=== PATIENT | female | born 1950 | race Caucasian/White ===

== ENCOUNTER 2017-07-09 07:35 | Day surgery (SDC) | payer MEDICARE, OTHER ==
[2017-07-09] MEDS ORDERED: NALOXONE HCL INJ/PF 0.4 MG/1 ML SDV ONE (07:50)
[2017-07-09] MEDS ORDERED: GLYCOPYRROLATE INJ 0.4 MG/2 ML VIAL ONE (07:50)
[2017-07-09] MEDS ORDERED: ONDANSETRON HCL INJ/PF 4 MG/2 ML SDV ONE (07:50)
[2017-07-09] MEDS ORDERED: FLUMAZENIL INJ 0.5 MG/5 ML VIAL ONE (07:51)
[2017-07-09] MEDS ORDERED: EPINEPHRINE INJ 1 MG/10 ML DISP.SYRIN ONE (07:51)
[2017-07-09] MEDS ORDERED: GLUCAGON,HUMAN RECOMB 1 MG INJ ONE (07:51)
[2017-07-09] MEDS: MIDAZOLAM 2 MG/2 ML INJ ONE ×4 (08:14→08:35)
[2017-07-09] MEDS: FENTANYL CITRATE INJ/PF 100 MCG/2 ML AMPUL ONE ×3 (08:16→08:45)
--- NOTE | 2017-07-09 09:27 | Operative Report ---
Operative Report DATE OF SURGERY: 07/09/17 PREOPERATIVE DIAGNOSIS: 1. Heartburn. 2. Abdominal pain POSTOPERATIVE DIAGNOSIS: 1. Diffuse esophagitis. 2. Diffuse gastritis. 3. Duodenitis with superficial ulceration. 4. Hiatal hernia OPERATION: 1. Esophagogastroduodenoscopy. 2. Cold forceps biopsy of distal and third of the esophagus; cold forceps biopsy of gastric antrum; cold forceps biopsy of proximal duodenum. 3. Total colonoscopy to cecum SURGEON: MAULIK MOSQUERA ANESTHESIA: Moderate Sedation TISSUE REMOVED OR ALTERED: Biopsies COMPLICATIONS: None ESTIMATED BLOOD LOSS: Scant INTRAOPERATIVE FINDINGS: See below PROCEDURE: Patient was taken to the preop holding area to the main endoscopy suite for [facility] were conscious sedation was induced. She is placed in the left lateral decubitus position, semirecumbent and oral mouthpiece inserted and monitoring devices attached. Surgical plan surgical time out were conducted. The flexible adult upper endoscope was advanced to the hypopharynx down the esophagus through the stomach into the duodenum. This is well tolerated by the patient. There was no evidence of retained gastric contents. In the first portion of the duodenum there is mild to moderate duodenitis, with early ulceration. No biopsies were obtained. The scope was brought back to the pylorus which showed no evidence of narrowing. There was a moderate hiatal hernia. The stomach was significant for moderate gastritis. No ulcers polyps or tumors or active bleeding. 2 biopsies were obtained from the gastric antrum and sent as gastric antral biopsies. The scope was withdrawn through the GE junction. There was moderate irregularity of the Z line. Photos were taken. A cold forceps biopsy of Z line was obtained. Again there was a moderate size hiatal hernia. Photos taken. No evidence of tumor or stricture or esophageal varix. The distal third of the esophagus had a mild to moderate cobblestoning appearance. Biopsy was obtained the mucosa of the esophagus at 30 cm the scope was brought back through the remainder the esophagus which is unremarkable. The scope was withdrawn with the patient's oropharynx. She tolerated this portion procedure well Instrumentation was changed for lower endoscopy. Patient was placed in extreme left side down position. Rectal examination revealed external hemorrhoids, mildly edematous. Rectal examination revealed no palpable or visible pathology. Possible pediatric colonoscope was advanced to the anorectal canal all the way to it was felt to be the cecum. The patient had a very redundant colon. Once we got to the cecum photos were taken. There was no further moment to advance the scope and patient in the abdominal wall and the right lower quadrant confirmed localization of the scope in this portion of the colon. The scope was withdrawn to the lymph the colon check and mucosa carefully. There was no evidence of tumor stricture bleeding polyp or diverticulosis. This was a excellent study well-prepped bowel. The scope was withdrawn the patient's anus. She tolerated procedure well. Per screening guidelines, appropriate candidate for colonoscopy follow-up in 10 years or sooner if symptoms develop.
--- NOTE | 2017-07-09 09:28 | PDOC DISCHARGE SUMMARY ---
Discharge Summary (SDC) - Discharge Final Diagnosis: Esophagitis, duodenitis, gastritis; hiatal hernia; external hemorrhoids Date of Surgery: 07/09/17 Discharge Date: 07/09/17 Condition: Good Treatment or Instructions: [address] [address] POST ENDOSCOPY DISCHARGE INSTRUCTIONS 1. Diet: Start clear liquids that a regular diet as tolerated. 2. Resume all preoperative medications. All oral anticoagulants and aspirins can be resumed 24 hours after procedure. 3. If a polypectomy was performed some bleeding per rectum may occur. This should stop within 3 days. If not, please contact the office. 4. If you had a colonoscopy you may experience some bloating and delayed return of normal bowel function for several days, your regular bowel movement pattern should resume within a week. 5. Please contact [facility] at to make an appointment with Dr. Carmichael for 1 to 3 weeks following procedure. 6. If you have any questions or concerns regarding your care,treatment plan or follow up, please contact our office. 7. Per clinical guidelines we recommend you undergo a repeat colonoscopy in 10 years. Referrals: MAULIK CARMICHAEL MD [ACTIVE STAFF] - 07/21/17 1:00 pm Discharge Diet: As Tolerated Discharge Activity: Activity As Tolerated Home Care Assistance: None Needed Report the Following to Your Physician Immediately: Shortness of Breath, Increase in Pain, Fever over 101 Degrees
[2017-07-09 10:12] VITALS: BP 143/80
== END 2017-07-09 10:20 | disposition home or self-care (01) ==
LOC: END 07:35
PROVIDERS: ATTEND Surgery
PROC: 0DB38ZX Excision of Lower Esophagus, Via Natural or Artificial Opening Endoscopic, Diagnostic (ICD-10-PCS; 2017-07-09)
PROC: 0DB68ZX Excision of Stomach, Via Natural or Artificial Opening Endoscopic, Diagnostic (ICD-10-PCS; principal; 2017-07-09 08:15)
PROC: 0DB58ZX Excision of Esophagus, Via Natural or Artificial Opening Endoscopic, Diagnostic (ICD-10-PCS; 2017-07-09 08:15)
DX: K31.9 Disease of stomach and duodenum, unspecified (principal); K20.9 Esophagitis, unspecified; K29.80 Duodenitis without bleeding; K44.9 Diaphragmatic hernia without obstruction or gangrene; M19.90 Unspecified osteoarthritis, unspecified site; R10.9 Unspecified abdominal pain; K64.4 Residual hemorrhoidal skin tags; Z85.3 Personal history of malignant neoplasm of breast; Z85.828 Personal history of other malignant neoplasm of skin; Z87.891 Personal history of nicotine dependence; Z79.899 Other long term (current) drug therapy; Z79.1 Long term (current) use of non-steroidal anti-inflammatories (NSAID); Z88.8 Allergy status to other drugs, medicaments and biological substances
CPT/HCPCS: 43239; 45378; 88342 ×2; 88305 ×2; J2250; J3010; J0171; J1610; J2310; J2405; J3490

== ENCOUNTER 2018-04-18 12:36 | Observation (INO) | payer MEDICARE, BC ==
--- NOTE | 2018-04-18 13:02 | RADIOLOGY REPORT (SQ) ---
EXAM DESCRIPTION: CT HEAD WITHOUT COMPLETED DATE/TIME: 04/18/2018 12:48 pm REASON FOR STUDY: numbness and dizziness COMPARISON: None. TECHNIQUE: Axial images acquired through the brain without intravenous contrast. Images reviewed wi th bone, brain and subdural windows. Additional sagittal and coronal reconstructions were generated. Images stored on PACS. All CT scanners at this facility use dose modulation, iterative reconstruction, and/or weight based d osing when appropriate to reduce radiation dose to as low as reasonably achievable (ALARA). [facility]: Dose Right [facility]: CareDose [facility]: Dose Right [facility]: Teradose 4D [facility]: Smart [employer] RADIATION DOSE: CT Rad equipment meets quality standard of care and radiation dose reduction techniq ues were employed. CTDIvol: 53.2 mGy. DLP: 964 mGy-cm. mGy. LIMITATIONS: Artifact from right parasellar aneurysm clips. FINDINGS: VENTRICLES: Prominent. CEREBRUM: No masses. No hemorrhage. No midline shift. Areas of low density in the white matter mos t likely due to chronic micro-vascular ischemic change. No evidence for acute infarction. CEREBELLUM: No masses. No hemorrhage. No alteration of density. No evidence for acute infarction. EXTRAAXIAL SPACES: Mild age-related involutional change. No fluid collections. No masses. ORBITS AND GLOBE: No intra- or extraconal masses. Normal contour of globe without masses. CALVARIUM: No fracture. PARANASAL SINUSES: No fluid or mucosal thickening. SOFT TISSUES: No mass or hematoma. OTHER: No other significant finding. IMPRESSION: Prior right MCA aneurysm clips. No acute findings. EVIDENCE OF ACUTE STROKE: NO. COMMENT: Pertinent positive or negative findings of the imaging study reported as a CRITICAL EXAM venita Gusman at12:56 on 04/18/2018. Category of Critical Exam: Stroke alert TECHNICAL DOCUMENTATION: JOB ID: [id number] Quality ID # 436: Final reports with documentation of one or more dose reduction techniques (e.g., Au tomated exposure control, adjustment of the mA and/or kV according to patient size, use of iterative reconstruction technique) 2010 [employer]- All Rights Reserved Reading location - IP/workstation name: [email or web address]
--- NOTE | 2018-04-18 13:06 | RADIOLOGY REPORT (SQ) ---
EXAM DESCRIPTION: CHEST SINGLE VIEW COMPLETED DATE/TIME: 04/18/2018 12:50 pm REASON FOR STUDY: STROKE ALERT COMPARISON: 02/06/2016 EXAM PARAMETERS: NUMBER OF VIEWS: One view. TECHNIQUE: Single frontal radiographic view of the chest acquired. RADIATION DOSE: NA LIMITATIONS: None. FINDINGS: LUNGS AND PLEURA: Stable scarring in the right apex. No effusions. MEDIASTINUM AND HILAR STRUCTURES: No masses. Contour normal. HEART AND VASCULAR STRUCTURES: Heart normal in size. Normal vasculature. BONES: No acute findings. HARDWARE: None in the chest. OTHER: No other significant finding. IMPRESSION: NO ACUTE RADIOGRAPHIC FINDING IN THE CHEST. TECHNICAL DOCUMENTATION: JOB ID: [id number] 1936 [employer]- All Rights Reserved Reading location - IP/workstation name: [email or web address]
[2018-04-18] MEDS ORDERED: ASPIRIN 81 MG TABLET, CHEWABLE PO ONE (13:26)
--- NOTE | 2018-04-18 13:31 | ER Document Report ---
ED General - General Chief Complaint: Dizziness Stated Complaint: DIZZINESS/NUMB FACE Time Seen by Provider: 04/18/18 12:56 Mode of Arrival: Ambulatory Information source: Patient Notes: This is a 67-year-old female with a history of breast cancer, brain aneurysm, osteoporosis. She presents to the emergency room with right-sided weakness, slurred speech, right facial numbness. Patient's symptoms started while she was doing yard work at 1145. She states she fell to the ground because of the weakness. She denies any head injury. The neighbor was at the scene and brought the patient to the emergency room. TRAVEL OUTSIDE OF THE [place] IN LAST 30 DAYS: No - HPI Onset: Just prior to arrival Onset/Duration: Sudden Quality of pain: No pain Severity: None Pain Level: Denies Associated symptoms: denies: Chest pain, Fever, Shortness of breath Exacerbated by: Denies Relieved by: Denies Similar symptoms previously: No Recently seen / treated by doctor: No - Related Data Allergies/Adverse Reactions: diphenhydramine HCl [From Benadryl] Allergy (Severe, Verified 04/18/18 13:02) Shortness of Breath, throat swells Past Medical History - General Information source: Patient - Social History Smoking Status: Never Smoker Cigarette use (# per day): No Chew tobacco use (# tins/day): No Frequency of alcohol use: None Drug Abuse: None Lives with: Family Family History: Reviewed & Not Pertinent Patient has suicidal ideation: No Patient has homicidal ideation: No - Past Medical History Cardiac Medical History: Denies: Hx Coronary Artery Disease, Hx Heart Attack, Hx Hypertension Pulmonary Medical History: Reports: Hx Pneumonia - as a child Denies: Hx Asthma, Hx Bronchitis, Hx COPD Neurological Medical History: Denies: Hx Cerebrovascular Accident, Hx Seizures Renal/ Medical History: Denies: Hx Peritoneal Dialysis Musculoskeletal Medical History: Reports Hx Arthritis - GENERALIZED Past Surgical History: Reports: Hx Breast Surgery - b/l lumpectomy, Hx Cholecystectomy, Hx Hysterectomy - Immunizations Hx Diphtheria, Pertussis, Tetanus Vaccination: Yes Review of Systems - Review of Systems Constitutional: denies: Chills, Fever EENT: No symptoms reported Cardiovascular: No symptoms reported Respiratory: No symptoms reported Gastrointestinal: No symptoms reported Genitourinary: No symptoms reported Female Genitourinary: No symptoms reported Musculoskeletal: No symptoms reported Skin: No symptoms reported Hematologic/Lymphatic: No symptoms reported Neurological/Psychological: See HPI Physical Exam - Vital signs Vitals: Temp Pulse Resp BP Pulse Ox 97.9 F 73 18 162/92 H 98 04/18/18 12:50 04/18/18 12:50 04/18/18 12:50 04/18/18 12:50 04/18/18 12:50 Notes: Physical exam: GENERAL: 67-year-old female, alert and oriented 3, no acute distress. Blood pressure 162/97, pulse 74, O2 saturation 100%, respiratory rate 11 HEAD: Atraumatic, normocephalic. EYES: Pupils equal round and reactive to light, extraocular movements intact, sclera anicteric, conjunctiva are normal. ENT: TMs normal, nares patent, oropharynx clear without exudates. Moist mucous membranes. NECK: Normal range of motion, supple without obvious mass. LUNGS: Breath sounds clear to auscultation bilaterally and equal. No wheezes rales or rhonchi. HEART: Regular rate and rhythm without murmurs, rubs or gallops. ABDOMEN: Soft, normoactive bowel sounds. No tenderness to palpation. No guarding, no rebound. No masses appreciated. EXTREMITIES: Normal range of motion, no pitting or edema. No clubbing or cyanosis. NEUROLOGICAL: Patient is alert and oriented 3, she is alert and keenly responsive, she knows the month and her age, she can perform commands without problems, she has a normal gaze, her visual ahn are intact, she does have mild sensory disturbance to the right side of the face, no facial palsy, no motor drift of upper or lower extremities, finger to nose is intact, her picture description, object naming and sentence reading is good, she has no dysarthria or extinction. NIH score is 1. PSYCH: Normal mood, normal affect. SKIN: Warm, Dry, normal turgor, no rashes or lesions noted. Course - Re-evaluation Re-evalutation: 04/18/18 13:30 Patient presents to the emergency room with symptoms concerning for stroke. She is excluded from thrombolytics because of rapidly improving symptoms. - Vital Signs Vital signs: Temp Pulse Resp BP Pulse Ox 97.9 F 76 15 143/78 H 100 04/18/18 12:50 04/18/18 18:42 04/18/18 17:31 04/18/18 17:31 04/18/18 17:31 - Laboratory Result Diagrams: 04/18/18 12:53 04/18/18 12:53 Laboratory results interpreted by me: 04/18/18 04/18/18 12:53 14:05 Chloride 108 H AST 38 H Urine Blood SMALL H Ur Leukocyte Esterase TRACE H - Diagnostic Test Radiology reviewed: Image reviewed, Reports reviewed - Chest x-ray is clear. CT of the head shows no bleed, prior aneurysm clips. - EKG Interpretation by Me Rate: Normal Rhythm: NSR - EKG shows normal sinus rhythm with a ventricular rate of 70, no acute ST-T wave changes Critical Care Note - Critical Care Note Total time excluding time spent on procedures (mins): 60 Discharge - Discharge Clinical Impression: CVA Condition: Stable Disposition: ADMITTED INPATIENT Admitting Provider: Cayla Bermeo Unit Admitted: [facility]
[2018-04-18 14:22] LABS: ABSOLUTE EOSINOPHILS # (AUTO) 0.2 10^3/uL (0.0-0.6); ABSOLUTE LYMPHOCYTES (AUTO) 1.9 10^3/uL (0.5-4.7); ABSOLUTE MONOCYTES (AUTO) 0.7 10^3/uL (0.1-1.4); ABSOLUTE NEUT (AUTO) 2.7 10^3/uL (1.7-8.2); BASOPHILS % (AUTO) 0.5 % (0-2); EOSINOPHILS % (AUTO) 3.6 % (0-6); HEMATOCRIT 38.8 % (36.0-47.0); HEMOGLOBIN 13.2 g/dL (12.0-15.5); LYMPHOCYTES % (AUTO) 34.8 % (13-45); MEAN CORPUSCULAR HEMOGLOBIN 32.4 pg (27.0-33.4); MEAN CORPUSCULAR HGB CONC 33.9 g/dL (32.0-36.0); MEAN CORPUSCULAR VOLUME 96 fl (80-97); MONOCYTES % (AUTO) 12.2 % (3-13); PLATELET COUNT 174 10^3/uL (150-450); RED BLOOD COUNT 4.06 10^6/uL (3.72-5.28); RED CELL DISTRIBUTION WIDTH 13.6 % (11.5-14.0); SEGMENTED NEUTROPHILS % (AUTO) 48.9 % (42-78); TOTAL CELLS COUNTED % (AUTO) 100 %; WHITE BLOOD COUNT 5.5 10^3/uL (4.0-10.5)
[2018-04-18 14:42] LABS: ALANINE AMINOTRANSFERASE 30 U/L (9-52); ALBUMIN 3.8 g/dL (3.5-5.0); ALKALINE PHOSPHATASE 88 U/L (38-126); ANION GAP 7 (5-19); ASPARTATE AMINO TRANSFERASE 38 U/L (14-36); BILIRUBIN,DIRECT 0.3 mg/dL (0.0-0.4); BILIRUBIN,TOTAL 0.4 mg/dL (0.2-1.3); BLOOD UREA NITROGEN 16 mg/dL (7-20); CALCIUM 9.5 mg/dL (8.4-10.2); CARBON DIOXIDE 29 mmol/L (22-30); CHLORIDE 108 mmol/L (98-107); CREATINE KINASE 67 U/L (30-135); GLUCOSE 103 mg/dL (75-110); POTASSIUM 3.6 mmol/L (3.6-5.0); SODIUM 143.5 mmol/L (137-145); TOTAL PROTEIN 6.6 g/dL (6.3-8.2)
[2018-04-18 14:56] LABS: CREATINE KINASE MB 0.79 ng/mL (<4.55)
[2018-04-18 14:56] LABS: APPEARANCE,URINE CLEAR; BILIRUBIN,URINE NEGATIVE (NEGATIVE); COLOR,URINE COLORLESS; GLUCOSE, URINE NEGATIVE (NEGATIVE); KETONES,URINE NEGATIVE (NEGATIVE); LEUKOCYTE ESTERASE,URINE TRACE (NEGATIVE); NITRITE,URINE NEGATIVE (NEGATIVE); PROTEIN,URINE NEGATIVE (NEGATIVE); URINE SPECIFIC GRAVITY 1.003; UROBILINOGEN,URINE NEGATIVE mg/dL (<2.0)
[2018-04-18 14:58] LABS: TROPONIN I < 0.012 ng/mL
--- NOTE | 2018-04-18 16:06 | RADIOLOGY REPORT (SQ) ---
EXAM DESCRIPTION: CTA HEAD COMPLETED DATE/TIME: 04/18/2018 3:44 pm REASON FOR STUDY: CVA COMPARISON: None. TECHNIQUE: Post IV contrast scanning, thin section axial imaging through the brain to evaluate the a rterial structures. Source and MIP images are saved and reviewed on PACS. Advanced 3D imaging as volume-rendering, MIPs, SSD performed? yes All CT scanners at this facility use dose modulation, iterative reconstruction, and/or weight based d osing when appropriate to reduce radiation dose to as low as reasonably achievable (ALARA). [facility]: Dose Right [facility]: CareDose [facility]: Dose Right [facility]: Teradose 4D [facility]: [employer]app CONTRAST TYPE AND DOSE: contrast/concentration: Isovue 350.00 mg/ml; Total Contrast Delivered: 70.0 ml; Total Saline Delivered: 62.0 ml RENAL FUNCTION: GFR > 60. LIMITATIONS: Artifact from aneurysm clips. FINDINGS: [place]: Aneurysm clips near the right M 1 segment. The anterior, middle, commercial stripper ior cerebral arteries are all patent. No evidence of aneurysm or focal stenosis. POSTERIOR CIRCULATION: The distal vertebral arteries are patent as is the basilar artery. No aneurysm . BRAIN: No enhancing lesions. BONES: Intact as visualized. SINUSES: No fluid or mucosal thickening. OTHER: No other significant finding. IMPRESSION: NO CTA EVIDENCE OF STENOSIS OR ANEURYSM OF THE [place]. TECHNICAL DOCUMENTATION: JOB ID: [id number] Quality ID # 436: Final reports with documentation of one or more dose reduction techniques (e.g., Au tomated exposure control, adjustment of the mA and/or kV according to patient size, use of iterative reconstruction technique) 2010 [employer]- All Rights Reserved Reading location - IP/workstation name: [email or web address]
--- NOTE | 2018-04-18 16:07 | RADIOLOGY REPORT (SQ) ---
EXAM DESCRIPTION: CTA NECK COMPLETED DATE/TIME: 04/18/2018 3:44 pm REASON FOR STUDY: CVA COMPARISON: None. TECHNIQUE: Axial dynamic scanning technique with dynamic contrast enhancement through the extra-sole scraper nial carotid and vertebral arteries. Multiplanar reconstruction. 3-D MIPS and Volume-rendered imag es acquired at the workstation and saved to PACS. Images are reviewed in soft tissue, bone, lung w indows. All CT scanners at this facility use dose modulation, iterative reconstruction, and/or weight based d osing when appropriate to reduce radiation dose to as low as reasonably achievable (ALARA). [facility]: Dose Right [facility]: CareDose [facility]: Dose Right [facility]: Teradose 4D [facility]: [email or web address] CONTRAST TYPE AND DOSE: See separate report of the same date RENAL FUNCTION: See separate report of the same date LIMITATIONS: None. FINDINGS: AORTIC ARCH: Normal three-vessel origin. Bilateral subclavian arteries are patent. No d issection. RIGHT CAROTIDS: Patent common, internal and external carotid arteries without suggestion of significa nt stenosis or irregular plaque. No dissection. RIGHT VERTEBRAL: Patent. No dissection. LEFT CAROTIDS: Patent common, internal and external carotid arteries without suggestion of significan t stenosis or irregular plaque. No dissection. LEFT VERTEBRAL: Patent. No dissection. OTHER: No other significant finding. OTHER: 3-D reconstructions confirm findings. IMPRESSION: NORMAL CTA OF THE EXTRA-CRANIAL CAROTID AND VERTEBRAL ARTERIES. COMMENT: Quality ID #[id number]: Measurements of distal internal carotid diameter were used as the denomina tor for stenosis measurement. TECHNICAL DOCUMENTATION: JOB ID: [id number] Quality ID # 436: Final reports with documentation of one or more dose reduction techniques (e.g., Au tomated exposure control, adjustment of the mA and/or kV according to patient size, use of iterative reconstruction technique) 2010 [employer]- All Rights Reserved Reading location - IP/workstation name: [email or web address]
[2018-04-18] MEDS ORDERED: ACETAMINOPHEN 325 MG TABLET PO PRN (16:17)
[2018-04-18] MEDS ORDERED: ONDANSETRON HCL INJ/PF 4 MG/2 ML SDV IV PRN (16:17)
--- NOTE | 2018-04-18 16:22 | EKG REPORT ---
SEVERITY:- NORMAL ECG - SINUS RHYTHM : Confirmed by: Farooq Evans MD 18-Apr-2018 16:22:03
[2018-04-18] MEDS ORDERED: METOPROLOL TARTRATE PF/INJ 5 MG/5 ML SDV IV PRN (16:23)
[2018-04-18] MEDS ORDERED: HYDRALAZINE HCL INJ/PF 20 MG/1 ML SDV IV PRN (16:23)
--- NOTE | 2018-04-18 16:44 | PDOC H&P ---
History of Present Illness Admission Date/PCP: 04/18/18 16:15 Patient complains of: R SIDED WEAKNESS History of Present Illness: ALEC GAY is a 67 year old female who presents to [facility] for right-sided weakness. The patient reports that at approximately 1130 she was outside in her garden today when she experienced an acute onset of right facial weakness, dysarthria, RUE weakness and paresthesia, and ataxia. A friend came to her aid and offered her water, initially thinking that the patient was suffering a near syncopal episode due to dehydration. Another friend arrived approximately 30 minutes later and was concerned that the patient may be having a stroke so she brought her to [facility] ED. Upon arrival to the ED, most of the patient's symptoms had resolved, her primary complaint was RUE weakness. VS were relatively stable , BP 162/92 HR 73 T 97.9 RR 18 SPO2 98% on RA. EKG showed NSR, no evidence of acute infarction or ischemia. Initial head CT was benign, only showing chronic microvascular changes. CXR was normal. Laboratory studies including CBC, CMP and cardiac enzymes were all completely normal. Upon assessment, the patient is resting comfortably in bed on room air. She is alert and oriented 4, she is able to answer all questions appropriately and recall the events of earlier this morning. Of note, the patient does have some difficulty with word finding but this is very mild and sporadic throughout the conversation. Her speech is clear. No evidence of facial droop. Equal strength in all 4 extremities. The patient denies paresthesia, visual changes, headache or neck pain. The patient has no difficulty with hand/eye coordination. Lungs are clear to auscultation. Normal S1-S2. Palpable pulses in all 4 extremities. No evidence of peripheral edema. Based on the patient's symptomology, plan to admit to hospitalist service for a TIA workup. Past Medical History Cardiac Medical History: Denies: Coronary Artery Disease, Myocardial Infarction, Hypertension Pulmonary Medical History: Reports: Pneumonia - as a child Denies: Asthma, Bronchitis, Chronic Obstructive Pulmonary Disease (COPD) Neurological Medical History: Denies: Seizures Malignancy Medical History: Reports: Breast Cancer - RADIATION & SURGERY Musculoskeltal Medical History: Reports: Arthritis - GENERALIZED Hematology: Denies: Anemia Past Surgical History Past Surgical History: Reports: Cholecystectomy, Hysterectomy, Other - ANEURYSM CLIPPING ([facility]) Social History Information Source: Patient Lives with: Alone Smoking Status: Never Smoker Frequency of Alcohol Use: None Hx Recreational Drug Use: No Drugs: None Hx Prescription Drug Abuse: No - Advance Directive Resuscitation Status: Full Code Family History Family History: Malignancy - lung - father Parental Family History Reviewed: Yes Children Family History Reviewed: NA Sibling(s) Family History Reviewed.: Yes Medication/Allergy Home Medications: Exemestane [Aromasin] 25 mg PO DAILY 06/29/17 Allergies/Adverse Reactions: diphenhydramine HCl [From Benadryl] Allergy (Severe, Verified 04/18/18 13:02) Shortness of Breath, throat swells Review of Systems All systems: reviewed and no additional remarkable complaints except as stated Physical Exam Vital Signs: Temp Pulse Resp BP Pulse Ox 97.9 F 78 11 L 148/91 H 98 04/18/18 12:50 04/18/18 15:00 04/18/18 15:10 04/18/18 15:10 04/18/18 15:10 General appearance: PRESENT: no acute distress Eye exam: PRESENT: conjunctiva pink, PERRLA Mouth exam: PRESENT: moist, tongue midline Neck exam: PRESENT: full ROM Respiratory exam: PRESENT: clear to auscultation catrachita, symmetrical, unlabored Cardiovascular exam: PRESENT: +S1, +S2 Pulses: PRESENT: normal radial pulses, normal dorsalis pedis pul Vascular exam: PRESENT: normal capillary refill GI/Abdominal exam: PRESENT: normal bowel sounds, soft. ABSENT: distended, tenderness Rectal exam: PRESENT: deferred Extremities exam: PRESENT: full ROM. ABSENT: pedal edema Musculoskeletal exam: PRESENT: ambulatory, full ROM Neurological exam: PRESENT: alert, awake, oriented to person, oriented to place , oriented to time, oriented to situation Psychiatric exam: PRESENT: appropriate affect Skin exam: PRESENT: dry, intact, normal color, warm Results Impressions: Chest X-Ray 04/18/18 00:00 IMPRESSION: NO ACUTE RADIOGRAPHIC FINDING IN THE CHEST. Head CT 04/18/18 00:00 IMPRESSION: Prior right MCA aneurysm clips. No acute findings. EVIDENCE OF ACUTE STROKE: NO. Head CTA 04/18/18 14:44 IMPRESSION: NO CTA EVIDENCE OF STENOSIS OR ANEURYSM OF THE [place]. Neck CTA 04/18/18 14:44 IMPRESSION: NORMAL CTA OF THE EXTRA-CRANIAL CAROTID AND VERTEBRAL ARTERIES. Status: Imported from PACS Assessment & Plan - Diagnosis (1) TIA (transient ischemic attack) Is this a current diagnosis for this admission?: Yes Plan: R sided weakness and paresthesia that has now resolved Head CT benign Unable to perform MRI due to history of aneurysm clipping CTA head normal CTA neck normal EKG shows NSR, no evidence of acute ischemia or infarct Admit to IMCU Carotid Doppler pending Echocardiogram pending Aspirin and statin therapy PRN antihypertensives to maintain SBP<170 Formal speech and swallow eval pending MENDS exam q4h NIH stroke scale q shift Lipid panel in AM - Time Time Spent: 30 to 50 Minutes Medications reviewed and adjusted accordingly: Yes Anticipated discharge: Home Within: within 36 hours - Inpatient Certification Based on my medical assessment, after consideration of the patient's comorbidities, presenting symptoms, or acuity I expect that the services needed warrant INPATIENT care.: Yes I certify that my determination is in accordance with my understanding of Medicare's requirements for reasonable and necessary INPATIENT services [42 CFR 412.3e].: Yes Medical Necessity: Risk of Complication if Not Cared For in Hospital - Plan Summary Plan Summary: COMPLETE TIA WORKUP
[2018-04-18] MEDS ORDERED: ATORVASTATIN CALCIUM 20 MG TABLET PO SCH (22:00)
[2018-04-19] MEDS ORDERED: LANSOPRAZOLE 30 MG TAB.RAP.DR PO SCH (06:00)
[2018-04-19 06:17] LABS: HEMATOCRIT 40.1 % (36.0-47.0); HEMOGLOBIN 13.6 g/dL (12.0-15.5); MEAN CORPUSCULAR HEMOGLOBIN 32.5 pg (27.0-33.4); MEAN CORPUSCULAR HGB CONC 33.9 g/dL (32.0-36.0); MEAN CORPUSCULAR VOLUME 96 fl (80-97); PLATELET COUNT 153 10^3/uL (150-450); RED BLOOD COUNT 4.19 10^6/uL (3.72-5.28); RED CELL DISTRIBUTION WIDTH 13.6 % (11.5-14.0); WHITE BLOOD COUNT 4.5 10^3/uL (4.0-10.5)
[2018-04-19 06:36] LABS: ALANINE AMINOTRANSFERASE 37 U/L (9-52); ALBUMIN 3.8 g/dL (3.5-5.0); ALKALINE PHOSPHATASE 60 U/L (38-126); ANION GAP 8 (5-19); ASPARTATE AMINO TRANSFERASE 38 U/L (14-36); BILIRUBIN,DIRECT 0.3 mg/dL (0.0-0.4); BILIRUBIN,TOTAL 0.9 mg/dL (0.2-1.3); BLOOD UREA NITROGEN 12 mg/dL (7-20); CALCIUM 9.5 mg/dL (8.4-10.2); CARBON DIOXIDE 24 mmol/L (22-30); CHLORIDE 111 mmol/L (98-107); CHOLESTEROL 213.76 mg/dL (0-200); GLUCOSE 95 mg/dL (75-110); POTASSIUM 4.2 mmol/L (3.6-5.0); TOTAL PROTEIN 6.5 g/dL (6.3-8.2); TRIGLYCERIDES 161 mg/dL (<150)
[2018-04-19 06:47] LABS: DIRECT LDL 131 mg/dL (<100)
[2018-04-19 06:50] LABS: VLDL CHOLESTEROL 32.2 mg/dL (10-31)
[2018-04-19] MEDS ORDERED: ASPIRIN 81 MG TABLET, ENT COATED PO SCH (10:00)
[2018-04-19] MEDS ORDERED: ENOXAPARIN SODIUM INJ 30 MG/0.3 ML DISP.SYRIN SUBCUT SCH (10:00)
[2018-04-19 15:27] VITALS: BP 162/92
[2018-04-19] MEDS ORDERED: ATORVASTATIN CALCIUM 40 MG TABLET PO SCH (22:00)
--- NOTE | 2018-04-20 13:44 | XCELERA REPORT ---
[address] [address] Transthoracic Echocardiogram Report Name: ALEC GAY Age: 67 yrs Gender: Female : 1950 Patient Status: Inpatient Patient Location: [address] [place] [address] Study Date: 04/19/2018 11:37 AM Height: 68 in Weight: 114 lb BSA: 1.6 m2 Procedure: A complete two-dimensional transthoracic echocardiogram was performed (2D, M-mode, spectral and color flow Doppler). The study was technically adequate with some images being suboptimal in quality. Reason For Study: TIA Ordering Physician: PAYTON TRUJILLO Performed By: Claudia Camarillo Interpretation Summary The left ventricular ejection fraction is normal. There is mild concentric left ventricular hypertrophy. The left ventricle is grossly normal size. Doppler measurements suggest pseudonormalized left ventricular relaxation, which is associated with grade II/IV or mild to moderate diastolic dysfunction Wall motion cannot be accurately commented on, but no definite regional wall motion abnormalities noted. The right ventricle is grossly normal size. The right ventricular systolic function is normal. The left atrial size is normal. The right atrium is normal. There is a trace amount of mitral regurgitation There is no mitral valve stenosis. There is no aortic valve stenosis No aortic regurgitation is present. There is a trace or physiologic amount of tricuspid regurgitation Tricuspid regurgitation jet envelope not well defined to measure RV systolic pressure accurately. The aortic root is not well visualized but is probably normal size. The inferior vena cava appeared normal and decreased > 50% with respiration (RAP 5-10 mmHg) There is no pericardial effusion. MMode/2D Measurements & Calculations RVDd: 2.7 cm LVIDd: 3.6 cm FS: 32.6 % Ao root diam: 2.6 cm IVSd: 1.0 cm LVIDs: 2.4 cm EDV(Teich): 55.0 ml Ao root area: 5.3 cm2 LVPWd: 0.98 cm ESV(Teich): 20.9 ml LA dimension: 2.4 cm EF(Teich): 61.9 % Doppler Measurements & Calculations MV E max aurora: MV P1/2t max aurora: Ao V2 max: LV V1 max P.9 cm/sec 48.4 cm/sec 114.0 cm/sec 3.7 mmHg MV A max aurora: MV P1/2t: 93.8 msec Ao max PG: LV V1 max: 81.4 cm/sec MVA(P1/2t): 2.3 cm2 5.2 mmHg 96.7 cm/sec MV E/A: 0.59 MV dec slope: 151.1 cm/sec2 MV dec time: 0.32 sec PA V2 max: MV P1/2t-pr_phl: 80.9 cm/sec 93.8 msec PA max P.6 mmHg Left Ventricle The left ventricle is grossly normal size. There is mild concentric left ventricular hypertrophy. The left ventricular ejection fraction is normal. Doppler measurements suggest pseudonormalized left ventricular relaxation, which is associated with grade II/IV or mild to moderate diastolic dysfunction. Wall motion cannot be accurately commented on, but no definite regional wall motion abnormalities noted. Right Ventricle The right ventricle is grossly normal size. There is normal right ventricular wall thickness. The right ventricular systolic function is normal. Atria The right atrium is normal. The left atrial size is normal. The interatrial septum is intact with no evidence for an atrial septal defect. Mitral Valve The mitral valve is grossly normal. There is no mitral valve stenosis. There is a trace amount of mitral regurgitation. Aortic Valve The aortic valve is not well visualized secondary to technical limitations. The aortic valve opens well. There is no aortic valve stenosis. No aortic regurgitation is present. Tricuspid Valve The tricuspid valve is not well visualized, but is grossly normal. There is no tricuspid stenosis. There is a trace or physiologic amount of tricuspid regurgitation. Tricuspid regurgitation jet envelope not well defined to measure RV systolic pressure accurately. Pulmonic Valve The pulmonic valve is not well visualized. Great Vessels The aortic root is not well visualized but is probably normal size. The inferior vena cava appeared normal and decreased > 50% with respiration (RAP 5-10 mmHg). Effusions There is no pericardial effusion. Incidental Findings No definite cardiac source of CVA/TIA noted on this particular trans-thoracic study. Consider RABIA if clinically indicated. May consider mobile cardiac telemetry monitoring (MCT) for ruling out transient AFIB. : PAYTON TRUJILLO > Jesus Chandler
== END 2018-04-19 15:30 | disposition home or self-care (01) ==
LOC: ER 12:36 → INTOOBSV 16:15 → EH 16:15 → 3S 18:38
PROVIDERS: ADMIT Internal Medicine; ATTEND Internal Medicine
DX: G45.9 Transient cerebral ischemic attack, unspecified (principal); M81.0 Age-related osteoporosis without current pathological fracture; R29.701 NIHSS score 1; R47.1 Dysarthria and anarthria; I67.1 Cerebral aneurysm, nonruptured; M19.90 Unspecified osteoarthritis, unspecified site; Z85.3 Personal history of malignant neoplasm of breast; Z92.3 Personal history of irradiation; Z79.899 Other long term (current) drug therapy; Z90.49 Acquired absence of other specified parts of digestive tract; Z60.2 Problems related to living alone; Z98.890 Other specified postprocedural states; Z95.828 Presence of other vascular implants and grafts
CPT/HCPCS: 93005; 99291; 36415 ×2; 82553; 82962; 82550; 85025; 85027; 80053 ×2; 81001; 84484 ×2; 83036; 80061; 93306; 71045; 70450; 70496; 70498; 93010; 92523; A9270 ×3; J1650; G9162; G9163; G9164

== ENCOUNTER 2019-01-18 08:07 | Emergency (ER) | payer MEDICARE, OTHER ==
[2019-01-18 08:23] VITALS: BP 136/65
--- NOTE | 2019-01-18 09:38 | ER Document Report ---
ED General - General Chief Complaint: Blurred Vision Stated Complaint: EYE PAIN Time Seen by Provider: 01/18/19 09:01 Primary Care Provider: JAQUELINE ARITA MD [ACTIVE STAFF] - 01/18/19 9:37 am Mode of Arrival: Ambulatory Information source: Patient Notes: Patient presents emergency department with complaints of blurred vision in her right eye past 3 days. Patient reports she is noticed floaters and flashes of light. 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 She denies trauma. She reports every now and then she will see light nevarez discharge coming from the right eye. Reports she is had a headache on the right side of her head that comes and goes for the past 3 months. TRAVEL OUTSIDE OF THE [place] IN LAST 30 DAYS: No - HPI Onset: Other Onset/Duration: Persistent Quality of pain: No pain Associated symptoms: None Exacerbated by: Denies Relieved by: Denies Similar symptoms previously: Yes Recently seen / treated by doctor: No - Related Data Allergies/Adverse Reactions: diphenhydramine HCl [From Benadryl] Allergy (Severe, Verified 01/18/19 08:16) Shortness of Breath, throat swells Past Medical History - General Information source: Patient - Social History Smoking Status: Never Smoker Chew tobacco use (# tins/day): No Drug Abuse: None Family History: Reviewed & Not Pertinent Patient has suicidal ideation: No Patient has homicidal ideation: No - Past Medical History Cardiac Medical History: Denies: Hx Coronary Artery Disease, Hx Heart Attack, Hx Hypertension Pulmonary Medical History: Reports: Hx Pneumonia - as a child Denies: Hx Asthma, Hx Bronchitis, Hx COPD Neurological Medical History: Denies: Hx Cerebrovascular Accident, Hx Seizures Renal/ Medical History: Denies: Hx Peritoneal Dialysis Malignancy Medical History: Reports: Hx Breast Cancer - RADIATION & SURGERY Musculoskeletal Medical History: Reports Hx Arthritis - GENERALIZED Psychiatric Medical History: Reports: Other - Early onset dementia Past Surgical History: Reports: Hx Breast Surgery - b/l lumpectomy, Hx Cholecystectomy, Hx Hysterectomy, Other - ANEURYSM CLIPPING ([facility]) - Immunizations Hx Diphtheria, Pertussis, Tetanus Vaccination: Yes Review of Systems - Review of Systems Notes: Review HPI for review of systems., All other systems negative Physical Exam - Vital signs Vitals: Temp Pulse Resp BP Pulse Ox 97.8 F 60 16 136/65 H 100 01/18/19 08:21 01/18/19 08:21 01/18/19 08:21 01/18/19 08:21 01/18/19 08:21 - General General appearance: Appears well, Alert In distress: None - HEENT Head: Normocephalic Eyes: Normal Conjunctiva: Normal Eyelashes: Normal Pupils: PERRL Visual acuity- Right eye: 20/25 Visual acuity- Left eye: 20/20 Visual acuity- Both eyes: 20/20 Corrective lenses worn: No Pharynx: Normal Neck: Normal, Supple - Respiratory Respiratory status: No respiratory distress Chest status: Nontender Breath sounds: Normal Chest palpation: Normal - Cardiovascular Rhythm: Regular Heart sounds: Normal auscultation - Extremities General upper extremity: Normal ROM General lower extremity: Normal ROM - Neurological Neuro grossly intact: Yes Cognition: Normal Orientation: AAOx4 [place] Coma Scale Eye Opening: Spontaneous Lee Coma Scale Verbal: Oriented Lee Coma Scale Motor: Obeys Commands [place] Coma Scale Total: 15 Speech: Normal Sensory: Normal - Psychological Associated symptoms: Normal affect, Normal mood - Skin Skin Temperature: Warm Skin Moisture: Dry Skin Color: Normal Course - Re-evaluation Re-evalutation: 01/18/19 09:46 Patient vision in the right eye is 20/25. No erythema no swelling to the right eye. Patient is experienced floaters with flashes. No current headache. Dr. Arita was consulted. Discussed patient's case. He reports patient can be followed up in his office now. She will be taken on a walk-in basis. Patient was instructed. Patient was very appreciative and happy. Dictation of this chart was performed using voice recognition software; therefore, there may be some unintended grammatical errors. - Vital Signs Vital signs: Temp Pulse Resp BP Pulse Ox 97.8 F 60 16 136/65 H 100 01/18/19 08:21 01/18/19 08:21 01/18/19 08:21 01/18/19 08:21 01/18/19 08:21 Discharge - Discharge Clinical Impression: Blurred vision, right eye Condition: Stable Disposition: HOME, SELF-CARE Additional Instructions: *You have been evaluated for blurred vision *Follow up with Dr Arita now *Return to ED for worsening condition, concerns, needs Referrals: JAQUELINE ARITA MD [ACTIVE STAFF] - 01/18/19 9:37 am
== END 2019-01-18 09:43 | disposition home or self-care (01) ==
LOC: ER 08:07
DX: H53.8 Other visual disturbances (principal); Z90.49 Acquired absence of other specified parts of digestive tract; Z90.710 Acquired absence of both cervix and uterus
CPT/HCPCS: 99283

== ENCOUNTER 2019-05-10 18:06 | Emergency (ER) | payer MEDICARE, OTHER ==
[2019-05-10 18:37] LABS: ABSOLUTE EOSINOPHILS # (AUTO) 0.1 10^3/uL (0.0-0.6); ABSOLUTE LYMPHOCYTES (AUTO) 2.1 10^3/uL (0.5-4.7); ABSOLUTE MONOCYTES (AUTO) 0.6 10^3/uL (0.1-1.4); ABSOLUTE NEUT (AUTO) 3.4 10^3/uL (1.7-8.2); BASOPHILS % (AUTO) 0.6 % (0-2); EOSINOPHILS % (AUTO) 2.4 % (0-6); HEMATOCRIT 41.5 % (36.0-47.0); HEMOGLOBIN 13.9 g/dL (12.0-15.5); LYMPHOCYTES % (AUTO) 33.1 % (13-45); MEAN CORPUSCULAR HEMOGLOBIN 31.7 pg (27.0-33.4); MEAN CORPUSCULAR HGB CONC 33.4 g/dL (32.0-36.0); MEAN CORPUSCULAR VOLUME 95 fl (80-97); MONOCYTES % (AUTO) 9.6 % (3-13); PLATELET COUNT 174 10^3/uL (150-450); RED BLOOD COUNT 4.38 10^6/uL (3.72-5.28); RED CELL DISTRIBUTION WIDTH 13.5 % (11.5-14.0); SEGMENTED NEUTROPHILS % (AUTO) 54.3 % (42-78); TOTAL CELLS COUNTED % (AUTO) 100 %; WHITE BLOOD COUNT 6.2 10^3/uL (4.0-10.5)
[2019-05-10 18:57] LABS: ALBUMIN 4.3 g/dL (3.5-5.0); ALKALINE PHOSPHATASE 75 U/L (38-126); ANION GAP 9 (5-19); ASPARTATE AMINO TRANSFERASE 47 U/L (14-36); BILIRUBIN,DIRECT 0.1 mg/dL (0.0-0.4); BILIRUBIN,TOTAL 0.8 mg/dL (0.2-1.3); BLOOD UREA NITROGEN 10 mg/dL (7-20); CALCIUM 9.6 mg/dL (8.4-10.2); CARBON DIOXIDE 27 mmol/L (22-30); CHLORIDE 105 mmol/L (98-107); CREATINE KINASE 45 U/L (30-135); GLUCOSE 125 mg/dL (75-110); POTASSIUM 3.3 mmol/L (3.6-5.0)
[2019-05-10 19:09] LABS: CREATINE KINASE MB 0.26 ng/mL (<4.55); TROPONIN I < 0.012 ng/mL
[2019-05-10] MEDS ORDERED: LIDOCAINE 2% VISCOUS SOLN 20 ML UDCUP PO ONE (19:11)
[2019-05-10] MEDS ORDERED: METOCLOPRAMIDE HCL ORAL SOLN 10 MG/10 ML UDCUP PO ONE (19:11)
[2019-05-10] MEDS ORDERED: MAG HYDROX/AL HYDROX/SIMETH SUSP 30 ML UDCUP PO ONE (19:11)
--- NOTE | 2019-05-10 20:51 | EKG REPORT ---
SEVERITY:- NORMAL ECG - SINUS RHYTHM : Confirmed by: Cassandra Olmedo MD 10-May-2019 20:51:01
[2019-05-10] MEDS ORDERED: CALCIUM CARBONATE 500 MG TAB.CHEW PO ONE (20:57)
[2019-05-10] MEDS ORDERED: FAMOTIDINE 20 MG TABLET PO ONE (20:57)
--- NOTE | 2019-05-10 21:15 | RADIOLOGY REPORT (SQ) ---
EXAM DESCRIPTION: CT angiogram of the chest abdomen pelvis CLINICAL HISTORY: 68 years Female sharp pain chest to back and legs, r/o dissection TECHNIQUE: Study performed with 100 mL of Omnipaque 350. MIPS reconstruction. There are delayed images of the abdomen and pelvis. This exam was performed according to our departmental dose-optimization program, which includes automated exposure control, adjustment of the mA and/or kV according to patient size and/or use of iterative reconstruction technique.. COMPARISON: None FINDINGS: CT chest: No evidence for pulmonary embolus. Ectatic ascending aorta 35 mm. No dissection. Mild the left cardiomegaly. No evidence for mediastinal adenopathy or pericardial effusion. Mild pectus deformity of the sternum not significantly compressing the right heart. Right upper lung demonstrates linear scarring and calcifications. There are additional opacities posteriorly adhering to the pleural surface in the rib. Calcified. Benign in nature. Series 3 image 25 and image 34. There is a tiny groundglass opacity in the upper thoracic of the right middle lobe. 4.5 mm in size. Series 4 image 46 series [address] abdomen pelvis: Large right anterior hepatic cyst. Smaller medial left hepatic cyst. Cholecystectomy. Mildly dilated 10 mm proximal common bile duct. 7 mm distal common bile duct. No significant intrahepatic biliary dilatation. Pancreas without acute findings. Borderline pancreatic duct up to 3 mm in the head. Spleen, adrenal glands, kidneys unremarkable. Minimally atherosclerotic aorta. No dilatation or narrowing. No dissection. Aortic branches are unremarkable. No suspicious para-aortic adenopathy. Mild dilatation of jejunal loops. Mildly increased colonic stool. CT of the pelvis demonstrates unremarkable iliac and common femoral arteries. There is mild dilatation and clumping of small bowel loops apparently distal jejunum. Series 5 images 48-57. The ileum is otherwise unremarkable. Urinary bladder contracted and unremarkable. Absent uterus. No adenopathy or free fluid. Distal colon is unremarkable. IMPRESSION: 1. No evidence for aortic dissection in the chest and abdomen. 2. Mild atherosclerotic disease including mild dilatation of the ascending aorta and atherosclerotic disease in the abdomen and pelvis without significant narrowing or dilatation. 3. There are benign findings in the right upper lung including scarring and calcifications. 4. There is a 4.5 mm groundglass nodule in the superior aspect of right middle lobe. If patient is low risk, no further follow-up is necessary. If patient is high risk, recommend six month follow-up CT. 5. CT abdomen pelvis demonstrates mild dilatation of the jejunum which is most obvious in the pelvis. There is no overt small bowel obstruction. The significance of this finding is not clear. If clinically suspicious, can be evaluated with CT with oral contrast or with small bowel follow-through. 6. Cholecystectomy. Mild biliary dilatation felt to be normal. Borderline pancreatic duct up to 3 mm.
--- NOTE | 2019-05-11 00:21 | ER Document Report ---
ED General - General Chief Complaint: Chest Pain Stated Complaint: DIFFICULTY BREATHING Time Seen by Provider: 05/10/19 18:28 Primary Care Provider: TONO JONES MD [Primary Care Provider] - Follow up as needed Notes: 68-year-old female presents emergency department complaining of sudden onset of a sharp stabbing pain that radiates up her neck into her head and into her back between her shoulder blades and down her back to her low back. States that it is still there and made her feel somewhat lightheaded. Patient has never had a pain like this before. Patient did actually just finished having an echocardiogram today after it happened, does not yet have the results. The echocardiogram was to medically clear her to have her gallbladder removed for biliary dysfunction. Patient was recently taken off of omeprazole by Dr. Jones after being on it for a month. TRAVEL OUTSIDE OF THE [place] IN LAST 30 DAYS: No - Related Data Allergies/Adverse Reactions: diphenhydramine HCl [From Benadryl] Allergy (Severe, Verified 01/18/19 08:16) Shortness of Breath, throat swells Past Medical History - General Information source: Patient - Social History Smoking Status: Former Smoker Chew tobacco use (# tins/day): No Frequency of alcohol use: None Drug Abuse: None Family History: Reviewed & Not Pertinent Patient has suicidal ideation: No Patient has homicidal ideation: No - Past Medical History Cardiac Medical History: Denies: Hx Coronary Artery Disease, Hx Heart Attack, Hx Hypertension Pulmonary Medical History: Reports: Hx Pneumonia - as a child Denies: Hx Asthma, Hx Bronchitis, Hx COPD Neurological Medical History: Denies: Hx Cerebrovascular Accident, Hx Seizures Renal/ Medical History: Denies: Hx Peritoneal Dialysis Malignancy Medical History: Reports: Hx Breast Cancer - RADIATION & SURGERY Musculoskeletal Medical History: Reports Hx Arthritis - GENERALIZED Past Surgical History: Reports: Hx Breast Surgery - b/l lumpectomy, Hx Cholecystectomy, Hx Hysterectomy, Other - ANEURYSM CLIPPING ([facility]) - Immunizations Hx Diphtheria, Pertussis, Tetanus Vaccination: Yes Review of Systems - Review of Systems Constitutional: No symptoms reported Cardiovascular: See HPI Respiratory: No symptoms reported Musculoskeletal: See HPI, Back pain -: Yes All other systems reviewed and negative Physical Exam - Vital signs Vitals: Resp Pulse Ox 15 98 05/10/19 18:20 10/01/19 18:20 Interpretation: Normal - Notes Notes: GENERAL: Alert, interacts well. No acute distress. HEAD: Normocephalic, atraumatic EYES: Pupils equal, round and reactive to light, extraocular movements intact. ENT: Oral mucosa moist, tongue midline. NECK: Full range of motion, supple, trachea midline. LUNGS: Clear to auscultation bilaterally, no wheezes, rales or rhonchi, no respiratory distress. HEART: Regular rate and rhythm, no murmurs, gallops, rubs. ABDOMEN: Soft, nontender, nondistended, bowel sounds present in all 4 quadrants. EXTREMITIES: Moves all 4 extremities spontaneously, no edema, radial pulses 2+ bilaterally, dorsalis pedis pulses 1+ in the left foot, 2+ in the right foot. No cyanosis. NEUROLOGICAL: Alert and oriented x3, normal speech, biceps and patellar DTRs 2+ bilaterally. PSYCH: Normal mood, normal affect. SKIN: Warm, Dry, normal turgor, no rashes or lesions noted. Course - Re-evaluation Re-evalutation: 05/11/19 00:16 CBC unremarkable, CMP shows slight low potassium at 3.3, otherwise unremarkable, troponin negative x2, CT angiogram of the chest abdomen pelvis was ordered due to the sharp pain that went from her chest to her back and up her neck and down her back. I was worried about an aortic dissection, this is negative for aortic dissection. There is some chronic scarring in the right upper lobe, nothing acute, there is a 4.5 mm groundglass nodule in the superior aspect of the right middle lobe, discussed with patient that she needs to talk to her doctor about whether she has high or low risk. If she is low risk there is no further follow-up necessary if she is high risk she needs a six-month follow-up CT. There was mild dilation of the jejunum but no overt small bowel obstruction, significant of the finding was not clear to the radiologist. Considering she is having no vomiting, no diarrhea and no abdominal pain I do not think this is a significant finding and do not feel this represents a small bowel obstruction. Patient was initially given a GI cocktail which completely relieved her pain which she initially described as sharp and stabbing and then changed with description of burning. About 40 minutes after relieving the pain with a GI cocktail which she laid down flat and the pain recurred. Patient stated the pain was in excruciating burning pain that radiated all the way up to her throat from her stomach and into her esophagus. Patient was given Tums and Pepcid, this completely relieved her pain and it has not come back at all. Patient then revealed that she had just been taken off of her omeprazole by Dr. Jones. Given all the negative testing and the fact that antacid medication is relieved her pain twice patient will be discharged to home with prescription for omeprazole and recommendations follow-up with Dr. Jones. Discharged home. - Vital Signs Vital signs: Temp Pulse Resp BP Pulse Ox 21 H 169/81 H 100 05/10/19 19:01 05/10/19 19:01 05/10/19 19:01 - Laboratory Result Diagrams: 05/10/19 18:21 05/10/19 18:21 Laboratory results interpreted by me: 05/10/19 18:21 Potassium 3.3 L Glucose 125 H AST 47 H - EKG Interpretation by Me Additional EKG results interpreted by me: 05/11/19 00:17 EKG shows sinus bradycardia at a rate of 59, normal axis, normal intervals, no ST segment elevations or depressions, no T wave inversions per my interpretation. Discharge - Discharge Clinical Impression: GERD (gastroesophageal reflux disease) Qualifiers: Esophagitis presence: esophagitis presence not specified Qualified Code(s): K21.9 - Gastro-esophageal reflux disease without esophagitis Condition: Stable Disposition: HOME, SELF-CARE Additional Instructions: Youhad a 4.5 mm groundglass opacity in the upper thoracic region of the right middle lobe. You will need to discuss with your primary care physician if you are considered low risk or high risk. If you are low risk then you need to do nothing else, if you are high risk then you will need to have a CT scan of the chest repeated in 6 months to reassess this for risk for cancer. I suspect your symptoms are coming from acid reflux. Please start taking the omeprazole again and follow-up with Dr. Jones. Prescriptions: Omeprazole 20 mg PO DAILY #30 capsule.dr Referrals: TONO JONES MD [Primary Care Provider] - Follow up as needed
[2019-05-11 00:44] VITALS: BP 137/83
== END 2019-05-11 00:44 | disposition home or self-care (01) ==
LOC: ER 18:06
DX: K21.9 Gastro-esophageal reflux disease without esophagitis (principal); J98.4 Other disorders of lung; R91.1 Solitary pulmonary nodule; R00.1 Bradycardia, unspecified; K59.8 Other specified functional intestinal disorders; M54.5 Low back pain; M54.2 Cervicalgia; R07.9 Chest pain, unspecified; R51 Headache; R42 Dizziness and giddiness; Z88.8 Allergy status to other drugs, medicaments and biological substances; Z87.891 Personal history of nicotine dependence; Z92.3 Personal history of irradiation; Z85.3 Personal history of malignant neoplasm of breast
CPT/HCPCS: 93005; 36415; 82553; 82550; 85025; 80053; 84484; 71275; 74174; 93010; A9270 ×3; J3490

== ENCOUNTER → 2019-05-23 | Outpatient (CLI) | payer MEDICARE, OTHER ==
[2019-05-23 10:43] LABS: ANION GAP 8 (5-19); BLOOD UREA NITROGEN 15 mg/dL (7-20); CALCIUM 9.8 mg/dL (8.4-10.2); CARBON DIOXIDE 30 mmol/L (22-30); CHLORIDE 102 mmol/L (98-107); CHOLESTEROL 116.58 mg/dL (0-200); CREATINE KINASE 34 U/L (30-135); DIRECT LDL 60 mg/dL (<100); GLUCOSE 103 mg/dL (75-110); POTASSIUM 4.3 mmol/L (3.6-5.0); TRIGLYCERIDES 93 mg/dL (<150); VLDL CHOLESTEROL 18.6 mg/dL (10-31)
== END ==
LOC: OD 07:56
PROVIDERS: ATTEND Family Medicine
DX: E87.6 Hypokalemia (principal); E78.5 Hyperlipidemia, unspecified; F03.90 Unspecified dementia, unspecified severity, without behavioral disturbance, psychotic disturbance, mood disturbance, and anxiety
CPT/HCPCS: 36415; 80061; 82550; 82607; 84443

== ENCOUNTER 2019-05-26 08:33 | Day surgery (SDC) | payer MEDICARE, OTHER ==
[2019-05-23 09:25] LABS: HEMATOCRIT 41.9 % (36.0-47.0); MEAN CORPUSCULAR HEMOGLOBIN 31.6 pg (27.0-33.4); MEAN CORPUSCULAR HGB CONC 33.3 g/dL (32.0-36.0); MEAN CORPUSCULAR VOLUME 95 fl (80-97); PLATELET COUNT 163 10^3/uL (150-450); RED BLOOD COUNT 4.42 10^6/uL (3.72-5.28); RED CELL DISTRIBUTION WIDTH 13.4 % (11.5-14.0); WHITE BLOOD COUNT 5.3 10^3/uL (4.0-10.5)
[2019-05-23 10:15] LABS: ALBUMIN 4.3 g/dL (3.5-5.0); ALKALINE PHOSPHATASE 76 U/L (38-126); ANION GAP 8 (5-19); ASPARTATE AMINO TRANSFERASE 32 U/L (14-36); BILIRUBIN,DIRECT 0.1 mg/dL (0.0-0.4); BLOOD UREA NITROGEN 15 mg/dL (7-20); CALCIUM 9.8 mg/dL (8.4-10.2); CARBON DIOXIDE 30 mmol/L (22-30); CHLORIDE 102 mmol/L (98-107); GLUCOSE 103 mg/dL (75-110); POTASSIUM 4.3 mmol/L (3.6-5.0); TOTAL PROTEIN 7.1 g/dL (6.3-8.2)
--- NOTE | 2019-05-23 12:06 | RADIOLOGY REPORT (SQ) ---
EXAM DESCRIPTION: CHEST PA/LATERAL COMPLETED DATE/TIME: 05/23/2019 9:36 am REASON FOR STUDY: PRE-OP COMPARISON: 04/07/2016 EXAM PARAMETERS: NUMBER OF VIEWS: two views TECHNIQUE: Digital Frontal and Lateral radiographic views of the chest acquired. RADIATION DOSE: NA LIMITATIONS: none FINDINGS: LUNGS AND PLEURA: Mild hyperinflation. Stable scarring in the right upper lobe. No devel oping nodules or infiltrate. MEDIASTINUM AND HILAR STRUCTURES: No masses or contour abnormalities. HEART AND VASCULAR STRUCTURES: Heart normal size. No evidence for failure. BONES: No acute findings. HARDWARE: None in the chest. OTHER: No other significant finding. IMPRESSION: No acute findings in the chest. TECHNICAL DOCUMENTATION: JOB ID: [id number] [employer]- All Rights Reserved Reading location - IP/workstation name: [email or web address]
--- NOTE | 2019-05-24 17:58 | EKG REPORT ---
SEVERITY:- NORMAL ECG - SINUS RHYTHM : Confirmed by: Jesus Chandler 24-May-2019 17:58:22
[~2019-05-26 08:33] MED LIST: CEFOXITIN SODIUM 2 GM in DEXTROSE 5%-WATER 100 ML IV PRN; IBUPROFEN 800 MG in NORMAL SALINE 250 ML IV PRN; LACTATED RINGERS 1000 ML IV PRN; LIDOCAINE 0.5% INJ-PF (5 MG/ML) 50 ML SDV SUBCUT PRN
[2019-05-26] MEDS ORDERED: PREGABALIN 50 MG CAPSULE ONE (08:49)
[2019-05-26] MEDS ORDERED: ACETAMINOPHEN 325 MG TABLET ONE ×2 (08:49→08:51)
[2019-05-26] MEDS: PREGABALIN 50 MG CAPSULE PO PRN ×2 (09:15→09:20)
[2019-05-26] MEDS: ACETAMINOPHEN 325 MG TABLET PO PRN ×2 (09:15→09:20)
[2019-05-26] MEDS ORDERED: FENTANYL CITRATE INJ/PF 100 MCG/2 ML AMPUL ONE (09:28)
[2019-05-26] MEDS ORDERED: MIDAZOLAM 2 MG/2 ML INJ ONE (09:28)
[2019-05-26] MEDS ORDERED: PROPOFOL INJ 200 MG/20 ML VIAL IV ONE (09:28)
[2019-05-26] MEDS ORDERED: ONDANSETRON HCL INJ/PF 4 MG/2 ML SDV ONE (10:28)
[2019-05-26] MEDS ORDERED: DEXAMETHASONE SOD PHOSPHATE INJ 4 MG/1 ML VIAL ONE (10:28)
[2019-05-26] MEDS ORDERED: PROMETHAZINE HCL INJ 25 MG/1 ML VIAL ONE (10:34)
[2019-05-26] MEDS ORDERED: BUPIVACAINE HCL 0.25 % INJ/PF (2.5 MG/1 ML) 30 ML VIAL INJ ONE (11:01)
[2019-05-26] MEDS ORDERED: ONDANSETRON HCL INJ/PF 4 MG/2 ML SDV IV PRN (11:11)
[2019-05-26] MEDS ORDERED: FENTANYL CITRATE INJ/PF 100 MCG/2 ML AMPUL IV PRN ×3 (11:11)
[2019-05-26] MEDS ORDERED: OXYCODONE-ACETAMINOPHEN 5-325 MG TABLET PO PRN ×2 (11:11)
[2019-05-26] MEDS ORDERED: MORPHINE SULFATE 10 MG/ML INJ IV PRN (11:11)
[2019-05-26] MEDS ORDERED: MEPERIDINE HCL/PF INJ 25 MG/1 ML DISP.SYRIN IV PRN (11:11)
--- NOTE | 2019-05-26 12:14 | Operative Report ---
Nonrecallable Operative Report DATE OF SURGERY: 05/26/19 PREOPERATIVE DIAGNOSIS: 1. Right upper quadrant pain. 2. Right upper quadrant ultrasound from March 2019 showing gallbladder with multiple cholelithiasis. POSTOPERATIVE DIAGNOSIS: 1. Evidence of previous cholecystectomy. 2. Large liver cyst immediately superior to the gallbladder fossa. 3. No evidence of intra-abdominal pathology (aside from the large liver cyst). OPERATION: Exploratory laparoscopy SURGEON: PAUL RUFF 1ST CHILD PSYCHOLOGY TEACHER: SAKINA BYRNE ANESTHESIA: GA TISSUE REMOVED OR ALTERED: None COMPLICATIONS: Upon laparoscopy, it was found that the patient had evidence of a previous cholecystectomy. The gallbladder fossa was examined. There was no residual gallbladder identified. There was a large liver cyst identified adjacent to the gallbladder fossa. ESTIMATED BLOOD LOSS: Minimal PROCEDURE: Indication for the procedure: This is a 68-year-old female that complains of right upper quadrant pain. She has a gallbladder ultrasound showing presence of a gallbladder with multiple gallstones. She reported fatty food intolerance. She also reported a history of a "urinary Bladder tack". Drains/implants: None. Procedure in detail: After informed consent was obtained, the patient was brought to the operating room and laid in the supine position. An infraumbilical incision was created with a 15 blade scalpel. Dissection was carried through the subcutaneous tissues using sharp and blunt dissection. The cicatrix was identified, grasped with a Rio clamp, and retracted upwards. The linea alba fascia was incised sharply, the abdomen was entered sharply. The balloon trocar was inserted, and pneumoperitoneum was achieved. A subxiphoid 5 mm port was placed under direct laparoscopic visualization. 2 more 5 mm ports were placed in the right upper quadrant in similar fashion. Atraumatic graspers were then placed through the 5 mm ports. There was a dense inflammatory reaction in and around the gallbladder fossa. The liver was retracted anteriorly. The gallbladder fossa was then examined. The gallbladder could not be visually identified. Sharp dissection was then used to free the omental adhesions from the gallbladder fossa. The duodenum was identified, as well as the common bile duct. The patient had no obvious residual gallbladder. Inspection of the abdomen was then undertaken. The right upper quadrant was further inspected. There is very large liver cyst immediately superior to the gallbladder fossa. I believe this is the "gallbladder with multiple gallstones" that was seen on the right upper quadrant ultrasound. Patient does not have any obvious solid masses or evidence of obvious malignancy on the liver at this time. Left upper quadrant was inspected. The wall of the stomach and the spleen appeared normal. The left lower quadrant was inspected. The sigmoid colon was without significant inflammation or adhesions. The right lower quadrant did show several adhesions of the cecum to the anterior abdominal wall. There was no kinking, or evidence of bowel obstruction in this area. Once this was completed, it was felt that the procedure was concluded. The 5 mm trochars were removed under direct laparoscopic visualization. The infraumbilical trocar was removed, and pneumoperitoneum was relieved. The infraumbilical fascia was closed using 0 Vicryl suture in [id number] fashion. The overlying skin was closed using 4-0 Vicryl Rapide suture in subcuticular fashion. A dressing was placed, and the procedure was concluded. All sponge, instrument, and needle counts were correct x2. Condition: Stable. Sakina Byrne PA-C was scrubbed and present the entirety the procedure. She assisted with all portions of the procedure including insertion of the trochars, examination of the abdomen, dissection of the gallbladder fossa, removal of the trochars, closure of the fascia, and closure of the skin.
--- NOTE | 2019-05-26 12:18 | Discharge Summary ---
Discharge Summary (SDC) - Discharge Final Diagnosis: Right upper quadrant pain. Large liver cyst. Date of Surgery: 05/26/19 Discharge Date: 05/26/19 Condition: Stable Treatment or Instructions: Discharge home. Diet as tolerated. Activity: No lifting greater than 10 pounds x 2 weeks. Follow-up with me in 7 to 10 days. Williamson 10/325 mg p.o. every 6 hours as needed for pain. Ibuprofen 800 mg p.o. 3 times daily with meals. Okay to shower on Thursday. No hot tubs, tub baths, or swimming pools x2 weeks. Referrals: SWATI JOY MD [Primary Care Provider] - Discharge Diet: As Tolerated Respiratory Treatments at Home: Deep Breathing/Coughing, Incentive Spirometer Discharge Activity: Balance Activity w/Rest, No Lifting Over 10 Pounds, No Lifting/Push/Pulling Home Care Assistance: None Needed Report the Following to Your Physician Immediately: Shortness of Breath, Nausea, Vomiting, Increase in Pain, Unusual Bleeding, Redness
[2019-05-26] MEDS ORDERED: BUPIVACAINE HCL 0.25 % INJ/PF (2.5 MG/1 ML) 30 ML VIAL ONE (12:34)
[2019-05-26] MEDS ORDERED: HYDROCODONE/ACETAMINOPHEN 10-325 MG TABLET ONE (13:18)
[2019-05-26] MEDS ORDERED: SUCCINYLCHOLINE CHLORIDE INJ 200 MG/10 ML VIAL ONE (14:07)
[2019-05-26] MEDS ORDERED: ROCURONIUM BROMIDE INJ 50 MG/5 ML VIAL IV ONE (14:07)
[2019-05-26 14:29] VITALS: BP 137/71
== END 2019-05-26 14:25 | disposition home or self-care (01) ==
LOC: OROUT 08:33
PROVIDERS: ATTEND Surgery
DX: K76.89 Other specified diseases of liver (principal); K80.20 Calculus of gallbladder without cholecystitis without obstruction; K60.2 Anal fissure, unspecified; K62.5 Hemorrhage of anus and rectum; Z79.899 Other long term (current) drug therapy; Z85.828 Personal history of other malignant neoplasm of skin; Z86.73 Personal history of transient ischemic attack (TIA), and cerebral infarction without residual deficits; Z85.3 Personal history of malignant neoplasm of breast; Z79.02 Long term (current) use of antithrombotics/antiplatelets
CPT/HCPCS: 93005; 36415; 85027; 80053; 71046; 93010; 00790; 49320; A9270 ×3; J3490; J1100; J3010; J2550; J0330; J2405; J7060; J7050; J2704; J1741; J0694; 790; J2250